=== PATIENT | male | born 1970 | race African-American/Black ===

== ENCOUNTER → 2017-01-18 | Outpatient (CLI) | payer BC ==
--- NOTE | ~2017-01-18 | CT57 ---
[facility] A Service [facility] RADIOLOGY TEXT RESULTS PATIENT: DEVONTE MARCANO LOCATION: [facility] : 70 UNIT #: [id number] AGE: [address]: Soumya Kinsey SEX: M ORDER DR: [id number] [facility] [address] [place], [place] [address] [id number] O MR#: [id number] Acc #: [id number] NAME: DEVONTE MARCANO : 1970 SEX: M STUDY DATE/TIME: 01/18/2017 15:21 UNIT: [facility] ROOM: STUDY DESCRIPTION: CT Chest Wo Cont Attending Physician: Soumya Kinsey A.P.R.N. Referring Physician: Soumya Kinsey A.P.R.N. Ordering Physician: Soumya Kinsey A.P.R.N. Primary Care Physician: Darrell Win M.D. MEDICAL IMAGING REPORT This report is preliminary unless electronic signature is present EXAM CT chest, 01/18/2017 INDICATION Abnormal findings on radiographic exam. Abnormal chest x-ray. Asbestos exposure. Occupational exposure. TECHNIQUE CT of the thorax without contrast. High-resolution images were obtained during inspiration and expiration. This CT exam was performed with one or more of the following radiation dose reduction techniques: automatic exposure control, adjustment of mA and/or kV according to patient size, and iterative reconstruction. COMPARISON Chest radiograph dated 01/30/2015 and 06/05/2014. FINDINGS There is no evidence of a significant interstitial lung disease. No architectural distortion/honeycombing, bronchiectasis, ground-glass densities, or air trapping. No significant interstitial thickening is identified. The lungs are clear. Central airways are patent. No enlarged mediastinal or hilar lymph nodes. No pericardial or pleural effusion. There is no evidence of pleural thickening or pleural calcification. Minimal soft tissue in the anterior mediastinum is compatible with residual thymus. IMPRESSION 1. Negative CT scan of the chest. 2. No evidence of significant interstitial lung disease. Specifically, [facility] A Service [facility] RADIOLOGY TEXT RESULTS PATIENT: DEVONTE MARCANO LOCATION: [facility] #: [id number] : [birth year] UNIT #: [id number] AGE: [address]: Soumya Kinsey SEX: M ORDER DR: no evidence of a usual interstitial pneumonia (UIP). Dictated by... Raheel Templeton M.D. THIS IS AN ELECTRONICALLY VERIFIED REPORT Raheel Templeton M.D. at 01/19/2017 9:25 AM LEONARDO/merle TD: 01/19/2017 00:33 JOB #: [id number] MEDICAL IMAGING REPORT COPY
== END | disposition home or self-care (01) ==
LOC: CCAT 15:01
DX: R93.8 Abnormal findings on diagnostic imaging of other specified body structures (principal)
CPT/HCPCS: 71250